=== PATIENT | female | born 2000 | race Caucasian/White ===

== ENCOUNTER 2020-07-06 04:55 | Emergency (ER) | payer MEDICAID ==
[~2020-07-06] VITALS: Ht 167.6 cm; Wt 123.0 kg
[2020-07-06 05:04] VITALS: Ht 167.6 cm; Wt 123.0 kg
[2020-07-06 06:04] VITALS: BP 127/86
== END 2020-07-06 06:04 | disposition home or self-care (01) ==
LOC: ED 04:55
DX: H65.91 Unspecified nonsuppurative otitis media, right ear (principal); J45.909 Unspecified asthma, uncomplicated

== ENCOUNTER 2020-07-06 22:12 | Emergency (ER) | payer MEDICAID ==
[~2020-07-06] VITALS: Ht 167.6 cm; Wt 122.9 kg
[2020-07-06 22:17] VITALS: Ht 167.6 cm; Wt 122.9 kg
[2020-07-07 00:29] VITALS: BP 149/101
== END 2020-07-07 00:24 | disposition home or self-care (01) ==
LOC: ED 22:12
DX: H66.91 Otitis media, unspecified, right ear (principal); J45.909 Unspecified asthma, uncomplicated